=== PATIENT | female | born 1985 | race Caucasian/White ===

== ENCOUNTER 2018-12-16 12:04 | Inpatient (IN) | payer OTHER ==
[2018-12-16 12:49] VITALS: BMI 19.7
--- NOTE | 2018-12-16 13:29 | HP ---
COWS - Scale Resting Pulse: 0= [place] 80 or Below Sweatin=Flushed/Facial Moisture Restless Observation: 1= Difficult to Sit Still Pupil Size: 1= Pupils >than Normal Bone or Joint Aches: 1= Mild Discomfort Runny Nose/ Eye Tearin= Nasal Congestion GI Upset > 30mins: 2= Nausea/Diarrhea Tremor Observation: 2= Slight Tremor Visible Yawning Observation: 1= 1-2x During Session Anxiety or Irritability: 0= None Goose Flesh Skin: 3=Piloerection COWS Score: 14 CIWA Score - Admission Criteria OASAS Guidelines: Admission for Medically Managed Detox: Requires at least one of the followin. CIWA greater than 12 2. Seizures within the past 24 hours 3. Delirium tremens within the past 24 hours 4. Hallucinations within the past 24 hours 5. Acute intervention needed for co occurring medical disorder 6. Acute intervention needed for co occurring psychiatric disorder 7. Severe withdrawal that cannot be handled at a lower level of care (continued vomiting, continued diarrhea, abnormal vital signs) requiring intravenous medication and/or fluids 8. Admission ROS [facility] - [facility] Chief Complaint: I want to stop using heroin Allergies/Adverse Reactions: Allergies Allergy/AdvReac Type Severity Reaction Status Date / Time No Known Allergies Allergy Verified 12/16/18 12:29 History of Present Illness: 32 year old woman who has been using heroin for 10 years presents for detox and possible rehabilitation. Her last treatment was in [place], after which she moved to [facility] and went to [facility]' out patient programme. She reports relapsing after her case was closed for missing therapy. She reports overdosing and withdrawal related seizure about a year ago. She is on gabapentin 600mg three times daily for chronic back pain related to herniated disc. Exam Limitations: No Limitations - Ebola screening Have you traveled outside of the country in the last 21 days: No (N) Have you had contact with anyone from an Ebola affected area: No Have you been sick,other than usual withdrawal symptoms: No Do you have a fever: No - Review of Systems Constitutional: Chills, Diaphoresis, Loss of Appetite, Unintentional Wgt. Loss EENT: reports: No Symptoms Reported Respiratory: reports: No Symptoms reported Cardiac: reports: No Symptoms Reported GI: reports: Nausea, Poor Fluid Intake Musculoskeletal: reports: Back Pain, Muscle Weakness Integumentary: reports: Sweating Neuro: reports: Seizure (remote), Tremors Endocrine: reports: No Symptoms Reported Hematology: reports: No Symptoms Reported Psychiatric: reports: Orientated x3, Anxious, Depressed Other Systems: Reviewed and Negative Patient History - Patient Medical History Hx Anemia: No Hx Asthma: No Hx Chronic Obstructive Pulmonary Disease (COPD): No Hx Cancer: No Hx Cardiac Disorders: No Hx Congestive Heart Failure: No Hx Hypertension: Yes (on meds) Hx Hypercholesterolemia: No Hx Pacemaker: No HX Cerebrovascular Accident: No Hx Seizures: Yes (related to drugs a couple of years ago ) Hx Dementia: No Hx Diabetes: No Hx Gastrointestinal Disorders: No Hx Liver Disease: No Hx Genitourinary Disorders: No Hx Sexually Transmitted Disorders: No Hx Renal Disease (ESRD): No Hx Thyroid Disease: No Hx Human Immunodeficiency Virus (HIV): No Hx Hepatitis C: Yes (not treated) Hx Depression: Yes Hx Suicide Attempt: No Hx Bipolar Disorder: No Hx Schizophrenia: No - Patient Surgical History Past Surgical History: Yes Hx Neurologic Surgery: No Hx Cataract Extraction: No Hx Cardiac Surgery: No Hx Lung Surgery: No Hx Breast Surgery: No Hx Breast Biopsy: No Hx Abdominal Surgery: No Hx Appendectomy: No Hx Cholecystectomy: No Hx Genitourinary Surgery: No Hx Section: No Hx Orthopedic Surgery: No Hx Hysterectomy: No Other Surgical History: tonsillectomy Anesthesia Reaction: No - PPD History Previous Implant?: Yes Documented Results: Negative w/o proof Implanted On Prior R Admission?: No PPD to be Administered?: Yes - Reproductive History Patient is a Female of Child Bearing Age (11 -55 yrs old): Yes LMP comment: irregular bleeding due to use of BC pills Patient : No - Smoking Cessation Smoking history: Current every day smoker Have you smoked in the past 12 months: Yes Aproximately how many cigarettes per day: 10 Hx Chewing Tobacco Use: No Initiated information on smoking cessation: Yes 'Breaking Loose' booklet given: 12/16/18 - Substances abused Heroin Substance route: Injection Frequency: Daily Amount used: 2 bundles Age of first use: 26 Date of last use: 12/15/18 Alprazolam (Xanax) Substance route: Oral Frequency: Daily Amount used: 3 - 1mg pill Age of first use: 22 Date of last use: 12/15/18 Family Disease History - Family Disease History Family Disease History: CA: Grandparent (breast ca, hodgkins lymphoma) Admission Physical Exam [facility] - Vital Signs Vital Signs: Vital Signs - 24 hr 12/16/18 12:26 Temperature 97.7 F Pulse Rate 72 Respiratory 17 Rate Blood Pressure 112/83 - Physical General Appearance: Yes: No Apparent Distress HEENTM: Yes: Hearing grossly Normal, Normocephalic, Normal Voice, ARMANDO Respiratory: Yes: Chest Non-Tender, Lungs Clear, Normal Breath Sounds, No Respiratory Distress, No Accessory Muscle Use Neck: Yes: No masses,lesions,Nodules, Supple Breast: Yes: Breast Exam Deferred Cardiology: Yes: Regular Rhythm, Regular Rate, S1, S2 Abdominal: Yes: Normal Bowel Sounds, Non Tender, Flat, Soft Genitourinary: Yes: Within Normal Limits Back: Yes: Normal Inspection Musculoskeletal: Yes: full range of Motion, Gait Steady, Pelvis Stable, Back pain, Muscle Pain, Muscle weakness Extremities: Yes: Tremors Neurological: Yes: care advocate II-XII NML intact, Fully Oriented, Alert, Normal Mood/ Affect, Normal Response Integumentary: Yes: Clammy, Track Burrows (on both arma) Lymphatic: Yes: Within Normal Limits - Diagnostic (1) Opioid dependence with withdrawal Current Visit: Yes Status: Acute (2) Nicotine dependence Current Visit: Yes Status: Acute Qualifiers: Nicotine product type: cigarettes Substance use status: uncomplicated Qualified Code(s): F17.210 - Nicotine dependence, cigarettes, uncomplicated (3) Hypertension Current Visit: Yes Status: Chronic Qualifiers: Hypertension type: essential hypertension Qualified Code(s): I10 - Essential (primary) hypertension (4) Depression Current Visit: Yes Status: Chronic (5) Herniated disc Current Visit: Yes Status: Chronic Qualifiers: Spinal region: lumbar Qualified Code(s): M51.26 - Other intervertebral disc displacement, lumbar region (6) Back pain Current Visit: Yes Status: Acute Qualifiers: Back pain location: low back pain Back pain laterality: bilateral Cleared for Admission [facility] - Detox or Rehab [facility] Level of Care: Medically Managed Detox Regimen/Protocol: Methadone Breathalyzer - Breathalyzer Breathalyzer: 0 Urine Drug Screen - Test Device Lot number: [id number] Expiration date: 08/31/20 - Control Is test valid?: Yes - Results Drug screen NEGATIVE: No Urine drug screen results: THC-Marijuana, MOP-Opiates Inpatient Rehab Admission - Rehab Decision to Admit Inpatient rehab admission?: No
[2018-12-16] MEDS ORDERED: MAG HYDROX/AL HYDROX/SIMETH 30 ML UNIT-DOSE CUP PO PRN (13:37)
[2018-12-16] MEDS ORDERED: P-EPHED 60MG/TRIPROLIDI 2.5MG TABLET PO PRN (13:37)
[2018-12-16] MEDS ORDERED: ACETAMINOPHEN 325 MG TABLET (FP) PO PRN ×2 (13:37)
[2018-12-16] MEDS ORDERED: IBUPROFEN 400 MG TABLET (FP) PO PRN (13:37)
[2018-12-16] MEDS ORDERED: MENTHOL/PHENOL 1 EACH UD MM PRN (13:37)
[2018-12-16] MEDS ORDERED: MAGNESIUM HYDROX 2400MG/30ML ORAL SUSPENSION 30 ML CUP PO PRN (13:37)
[2018-12-16] MEDS ORDERED: cloNIDine HCL 0.1 MG TABLET PO PRN (13:37)
[2018-12-16] MEDS ORDERED: MELATONIN 5 MG TABLETS PO PRN (13:37)
[2018-12-16] MEDS ORDERED: hydrOXYzine PAMOATE 50 MG CAPSULE (FP) PO PRN (13:37)
[2018-12-16] MEDS ORDERED: METHADONE HCL 10 MG TABLET (FOR DETOX USE ONLY) PO ONE ×2 (13:37→23:00)
[2018-12-16] MEDS ORDERED: ONDANSETRON *ODT* 4 MG TABLET SL PRN (13:37)
[2018-12-16] MEDS ORDERED: METHOCARBAMOL 500 MG TABLET PO PRN (13:37)
[2018-12-16] MEDS ORDERED: MAGNESIUM CITRATE 300 ML BOTTLE PO PRN (13:37)
[2018-12-16] MEDS ORDERED: BISMUTH SUBSALICYLATE 524 MG/30 ML UD PO PRN (13:37)
[2018-12-16] MEDS ORDERED: NICOTINE POLACRILEX 2 MG GUM BUC PRN (13:37)
[2018-12-16] MEDS ORDERED: NALOXONE HCL 0.4 MG/ML VIAL IVPUSH PRN (13:37)
[2018-12-16] MEDS: GABAPENTIN 300 MG CAPSULE (FP) PO SCH ×2 (14:44→22:13)
[2018-12-16] MEDS: clonazePAM 0.5 MG TABLET PO PRN ×2 (14:45→19:45)
[2018-12-16] MEDS: NICOTINE 14 MG/24 HOURS TOPICAL PATCH TD SCH (14:51)
[2018-12-16] MEDS ORDERED: THIAMINE HCL 100 MG TABLET (FP) PO SCH (22:00)
[2018-12-16] MEDS ORDERED: QUEtiapine FUMARATE 50 MG TABLET PO ONE (22:00)
[2018-12-17] MEDS: GABAPENTIN 300 MG CAPSULE (FP) PO SCH ×2 (05:26→13:29)
[2018-12-17] MEDS: clonazePAM 0.5 MG TABLET PO PRN ×2 (05:28→11:29)
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
[2018-12-17] MEDS ORDERED: METHADONE HCL 5 MG TABLET (FOR DETOX USE ONLY) PO ONE (10:00)
[2018-12-17] MEDS ORDERED: PRENATAL VITAMINS W/ FOLIC ACID TABLET (FP) PO SCH (10:00)
[2018-12-17] MEDS ORDERED: ARIPiprazole 5 MG TABLET (FP) PO SCH (10:30)
[2018-12-17] MEDS ORDERED: VENLAFAXINE HCL 75 MG E.R. CAPSULES (FP) PO SCH (10:30)
[2018-12-17] MEDS: NICOTINE 14 MG/24 HOURS TOPICAL PATCH TD SCH (10:35)
[2018-12-17 13:20] VITALS: BP 119/67; PULSE 75; TEMP 97.9
--- NOTE | 2018-12-17 14:42 | DS ---
[facility] Detox Discharge Summary Admission Date: 12/16/18 Discharge Date: 12/17/18 - History Present History: Opioid Dependence, Sedative Dependence Pertinent Past History: ABOVE - Physical Exam Results Vital Signs: Vital Signs Temperature 97.9 F 12/17/18 13:19 Pulse Rate 75 12/17/18 13:19 Respiratory Rate 18 12/17/18 13:19 Blood Pressure 119/67 12/17/18 13:19 O2 Sat by Pulse Oximetry (%) Pertinent Admission Physical Exam Findings: ADMITTED IN ACUTE WITHDRAWAL PERSISTED AND SYMPTOMATIC MANAGEMENT ATTEMPTED PT DC AMA IN SPITE OF EXTENSIVE MOTIBVATIONAL COUNSELING RE DESIRE TO COMPLETE DETOX AND EVENTUAL ABSTINENCE RISKS OF LOSS OF TOLERANCE RELAPSE OVERDOSE AND DISCUSSED - Medication Discharge Medications: Ambulatory Orders Aripiprazole 2 mg PO DAILY 12/16/18 Ethinyl Estradiol/Drospirenone [Jasmiel 3 mg-0.02 mg Tablet] 1 each PO DAILY Gabapentin 600 mg PO TID 12/16/18 Propranolol HCl 10 mg PO DAILY 12/16/18 Quetiapine Fumarate [Seroquel -] 50 mg PO HS 12/16/18 Venlafaxine HCl [Effexor -] 150 mg PO DAILY 12/16/18 - AMA Did Patient Leave Against Medical Advice: Yes
--- NOTE | 2018-12-17 16:52 | EKG ---
Test Reason : Blood Pressure : / mmHG Vent. Rate : 051 BPM Atrial Rate : 051 BPM P-R Int : 146 ms QRS Dur : 086 ms QT Int : 416 ms P-R-T Axes : 045 073 059 degrees QTc Int : 383 ms SINUS BRADYCARDIA OTHERWISE NORMAL ECG NO PREVIOUS ECGS AVAILABLE Confirmed by MD PALOMA, RENATA ([id number]) on 12/17/2018 4:51:47 PM Referred By: Confirmed By:RENATA DOW MD
[2018-12-17] MEDS ORDERED: QUEtiapine FUMARATE 50 MG TABLET PO SCH (22:00)
[2018-12-18] MEDS ORDERED: METHADONE HCL 10 MG TABLET (FOR DETOX USE ONLY) PO ONE (10:00)
[2018-12-19] MEDS ORDERED: METHADONE HCL 5 MG TABLET (FOR DETOX USE ONLY) PO ONE (06:00)
== END 2018-12-17 14:36 | disposition left against medical advice (07) | DRG 770 ==
LOC: YASAS 12:04 → Y3N 13:31
PROVIDERS: ADMIT Surgery; ATTEND Surgery
PROC: HZ2ZZZZ Detoxification Services for Substance Abuse Treatment (ICD-10-PCS; principal; 2018-12-16)
DX: F11.23 Opioid dependence with withdrawal (principal); F13.230 Sedative, hypnotic or anxiolytic dependence with withdrawal, uncomplicated; F17.210 Nicotine dependence, cigarettes, uncomplicated; F33.9 Major depressive disorder, recurrent, unspecified; F19.24 Other psychoactive substance dependence with psychoactive substance-induced mood disorder; F19.282 Other psychoactive substance dependence with psychoactive substance-induced sleep disorder; M51.26 Other intervertebral disc displacement, lumbar region; M54.5 Low back pain; G89.29 Other chronic pain; I10 Essential (primary) hypertension; B18.2 Chronic viral hepatitis C; Z86.69 Personal history of other diseases of the nervous system and sense organs
CPT/HCPCS: 81025; 93005; 93010

== ENCOUNTER 2022-09-08 17:21 | Inpatient (IN) | payer BC ==
[2022-09-08 17:49] VITALS: BMI 30.2
[2022-09-08] MEDS ORDERED: CLINDAMYCIN 900 MG PREMIX IVPB 900 MG/50 ML BAG IVPB ONE ×2 (18:14→18:55)
[2022-09-08] MEDS ORDERED: ACETAMINOPHEN 1000 MG/100 ML BAG IVPB ONE (18:16)
[2022-09-08] MEDS ORDERED: DIPHTH,PERTUSS(ACELL),TET 0.5 ML DISP.SYRIN IM ONE ×2 (18:16→18:48)
[2022-09-08] MEDS ORDERED: LACTATED RINGERS SOLUTION 1000 ML INFUS.BAG IV ONE ×2 (18:16)
[2022-09-08] MEDS ORDERED: ACETAMINOPHEN INJECTION 100 ML IVPB ONE (18:48)
[2022-09-08 19:05] LABS: BASO % 0.5 % (0-2.0); EOS % 1.4 % (0-4.5); HEMATOCRIT 34.2 % (32.4-45.2); LYMPH % 28.5 % (8-40); MCHC 32.2 g/dl (32.0-36.0); MEAN CELL VOLUME 83.9 fl (80-96); MEAN PLT VOLUME 8.3 fl (7.5-11.1); MONO % 8.2 % (3.8-10.2); NEUT % 61.4 % (42.8-82.8); PLATELET COUNT 272 10^3/uL (134-434); RBC 4.08 M/mm3 (3.60-5.2); RDW 13.7 % (11.6-15.6); WHITE BLOOD COUNT 5.1 K/mm3 (4.0-10.0)
[2022-09-08 19:12] LABS: INR 1.23 (0.83-1.09); PROTHROMBIN TIME (PATIENT) 14.2 SEC (9.7-13.0)
[2022-09-08 19:15] LABS: ACTIVATED PTT 32.8 SECONDS (25.2-36.5)
[2022-09-08 19:34] LABS: BLOOD UREA NITROGEN 5.5 mg/dL (7-18); CALCIUM 8.7 mg/dL (8.5-10.1)
[2022-09-08 19:35] LABS: ALBUMIN 3.2 g/dl (3.4-5.0)
[2022-09-08 19:38] LABS: CREATININE 0.5 mg/dL (0.55-1.3)
[2022-09-08 19:40] LABS: BILIRUBIN,TOTAL 0.4 mg/dL (0.2-1); TOT PROT 7.2 g/dl (6.4-8.2)
[2022-09-08] MEDS ORDERED: POTASSIUM CHLORIDE TABS 20 MEQ TABLET.ER (FP) PO ONE (23:46)
[2022-09-09] MEDS ORDERED: cloNIDine HCL 0.1 MG TABLET PO PRN (00:48)
[2022-09-09] MEDS ORDERED: propRANOLol HCL 10 MG TABLET PO PRN (01:14)
[2022-09-09] MEDS ORDERED: hydrOXYzine PAMOATE 25 MG CAPSULE (FP) PO PRN (01:14)
[2022-09-09] MEDS ORDERED: methaDONE HCL 10 MG TABLET PO ONE (01:15)
[2022-09-09] MEDS ORDERED: methaDONE HCL 10 MG TABLET ONE (01:21)
[2022-09-09] MEDS ORDERED: KCL 10 MEQ IVPB 30 MEQ/300 ML INFUS.BAG IVPB ONE (01:21)
[2022-09-09] MEDS ORDERED: POTASSIUM CHLORIDE TABS 20 MEQ TABLET.ER (FP) PO ONE ×2 (01:21→05:00)
[2022-09-09] MEDS: KCL 10 MEQ IVPB 10 MEQ/100 ML INFUS.BAG IVPB SCH ×3 (01:51→04:47)
[2022-09-09] MEDS ORDERED: PIPERACILLIN/TAZOB 3.375 GM 3.375 GM/50 ML BAG IVPB ONE ×2 (01:54→08:59)
[2022-09-09] MEDS: PIPERACILLIN/TAZOB 3.375 GM 3.375 GM in DEXTROSE 5%-WATER - 50 ML IVPB SCH ×3 (02:04→15:48)
[2022-09-09 03:50] LABS: HIV INTERPRETATION NEGATIVE (NEGATIVE)
[2022-09-09] MEDS ORDERED: KETOROLAC TROMETHAMINE 30 MG/1 ML VIAL IVPUSH ONE (04:58)
[2022-09-09] MEDS ORDERED: GABAPENTIN 300 MG CAPSULE ONE ×3 (05:13→22:29)
[2022-09-09] MEDS ORDERED: KETOROLAC TROMETHAMINE 30 MG/1 ML VIAL ONE ×2 (05:14→13:03)
[2022-09-09] MEDS: CLINDAMYCIN 900 MG PREMIX IVPB 900 MG/50 ML BAG IVPB SCH ×2 (05:29→08:59)
[2022-09-09] MEDS: GABAPENTIN 300 MG CAPSULE PO SCH ×3 (05:30→22:29)
[2022-09-09] MEDS ORDERED: GABAPENTIN 300 MG CAPSULE PO SCH (06:00)
[2022-09-09] MEDS: KETOROLAC TROMETHAMINE 15 MG/ML VIAL IVPUSH PRN ×2 (13:04→23:22)
[2022-09-09] MEDS ORDERED: ENOXAPARIN NA (PORCINE) 40 MG/0.4 ML DISP.SYRIN SQ ONE (14:29)
[2022-09-09] MEDS: ENOXAPARIN NA (PORCINE) 40 MG/0.4 ML DISP.SYRIN SQ SCH (14:35)
[2022-09-09] MEDS ORDERED: VANCOMYCIN/WATER FOR INJ (PEG) 1,000 MG/200 ML BAG IVPB ONE (16:23)
[2022-09-09] MEDS ORDERED: VANCOMYCIN 500 MG VIAL (RESTRICTED TO ID ONLY) ONE (16:23)
[2022-09-09] MEDS: VANCOMYCIN PREMIX 1.5 GM 1,500 MG/300 ML BAG IVPB SCH (16:27)
[2022-09-09] MEDS ORDERED: CLINDAMYCIN HCL 150 MG CAPSULE (FP) PO SCH (18:00)
[2022-09-09] MEDS ORDERED: QUEtiapine FUMARATE 100 MG TABLET (FP) PO SCH (22:00)
[2022-09-09] MEDS ORDERED: QUEtiapine FUMARATE 100 MG TABLET (FP) ONE (22:29)
[2022-09-09] MEDS: LORazepam 1 MG TABLET PO PRN (23:24)
[2022-09-10] MEDS: GABAPENTIN 300 MG CAPSULE PO SCH ×3 (06:21→21:26)
[2022-09-10] MEDS: LORazepam 1 MG TABLET PO PRN (06:22)
[2022-09-10] MEDS: ENOXAPARIN NA (PORCINE) 40 MG/0.4 ML DISP.SYRIN SQ SCH (09:49)
[2022-09-10] MEDS ORDERED: POTASSIUM CHLORIDE TABS 20 MEQ TABLET.ER (FP) PO SCH (10:00)
[2022-09-10] MEDS ORDERED: ACETAMINOPHEN 325 MG TABLET (FP) PO ONE (10:30)
[2022-09-10] MEDS ORDERED: BACITRACIN ZINC 15 GM TUBE TOPICAL OINTMENT TP SCH (11:00)
[2022-09-10 11:29] VITALS: RESP 18
[2022-09-10] MEDS: KETOROLAC TROMETHAMINE 15 MG/ML VIAL IVPUSH PRN (14:10)
[2022-09-10] MEDS: VANCOMYCIN PREMIX 1.5 GM 1,500 MG/300 ML BAG IVPB SCH (14:30)
[2022-09-10 14:46] LABS: URINE APPEARANCE CLEAR; URINE BILIRUBIN NEGATIVE (NEGATIVE); URINE COLOR YELLOW; URINE GLUCOSE (UA) NEGATIVE (NEGATIVE); URINE KETONE 1+ (NEGATIVE); URINE LEUK ESTERASE NEGATIVE (NEGATIVE); URINE NITRITE NEGATIVE (NEGATIVE); URINE PROTEIN TRACE (NEGATIVE)
[2022-09-10] MEDS: KETOROLAC TROMETHAMINE 30 MG/1 ML VIAL IVPUSH PRN (18:51)
[2022-09-10] MEDS: QUEtiapine FUMARATE 100 MG TABLET (FP) PO SCH (21:26)
[2022-09-11] MEDS: GABAPENTIN 300 MG CAPSULE PO SCH ×3 (06:20→21:02)
[2022-09-11] MEDS: BACITRACIN ZINC 15 GM TUBE TOPICAL OINTMENT TP SCH (09:09)
[2022-09-11] MEDS: POTASSIUM CHLORIDE TABS 20 MEQ TABLET.ER (FP) PO SCH (09:10)
[2022-09-11] MEDS: ENOXAPARIN NA (PORCINE) 40 MG/0.4 ML DISP.SYRIN SQ SCH (09:10)
[2022-09-11] MEDS ORDERED: methaDONE HCL 10 MG TABLET PO ONE ×3 (10:00)
[2022-09-11] MEDS: KETOROLAC TROMETHAMINE 30 MG/1 ML VIAL IVPUSH PRN ×3 (10:15→22:53)
[2022-09-11] MEDS: VANCOMYCIN PREMIX 1.5 GM 1,500 MG/300 ML BAG IVPB SCH (15:58)
[2022-09-11] MEDS: LORazepam 1 MG TABLET PO PRN ×2 (16:27→22:52)
[2022-09-11 17:48] LABS: BASO % 0.5 % (0-2.0); EOS % 2.2 % (0-4.5); HEMATOCRIT 35.2 % (32.4-45.2); HEMOGLOBIN 11.5 GM/dL (10.7-15.3); LYMPH % 33.9 % (8-40); MCH 27.2 pg (25.7-33.7); MCHC 32.6 g/dl (32.0-36.0); MEAN CELL VOLUME 83.5 fl (80-96); MEAN PLT VOLUME 8.1 fl (7.5-11.1); MONO % 7.9 % (3.8-10.2); NEUT % 55.5 % (42.8-82.8); PLATELET COUNT 261 10^3/uL (134-434); RBC 4.22 M/mm3 (3.60-5.2); RDW 13.8 % (11.6-15.6); WHITE BLOOD COUNT 5.2 K/mm3 (4.0-10.0)
[2022-09-11 17:58] LABS: BLOOD UREA NITROGEN 9.3 mg/dL (7-18); MAGNESIUM 1.9 mg/dL (1.8-2.4)
[2022-09-11 17:59] LABS: ALBUMIN 2.8 g/dl (3.4-5.0)
[2022-09-11 18:02] LABS: BILIRUBIN,TOTAL 0.3 mg/dL (0.2-1); CREATININE 0.5 mg/dL (0.55-1.3)
[2022-09-11 18:03] LABS: TOT PROT 6.2 g/dl (6.4-8.2)
[2022-09-11] MEDS ORDERED: ACETAMINOPHEN 500 MG TABLET (FP) PO ONE (20:47)
[2022-09-11] MEDS: QUEtiapine FUMARATE 100 MG TABLET (FP) PO SCH (21:03)
[2022-09-12] MEDS: GABAPENTIN 300 MG CAPSULE PO SCH ×2 (05:57→15:01)
[2022-09-12] MEDS: KETOROLAC TROMETHAMINE 30 MG/1 ML VIAL IVPUSH PRN ×2 (05:57→12:48)
[2022-09-12] MEDS: LORazepam 1 MG TABLET PO PRN (08:49)
[2022-09-12] MEDS: ENOXAPARIN NA (PORCINE) 40 MG/0.4 ML DISP.SYRIN SQ SCH (09:45)
[2022-09-12] MEDS: BACITRACIN ZINC 15 GM TUBE TOPICAL OINTMENT TP SCH (09:46)
[2022-09-12] MEDS: POTASSIUM CHLORIDE TABS 20 MEQ TABLET.ER (FP) PO SCH (11:01)
[2022-09-12 14:31] VITALS: BP 123/75; PULSE 88; TEMP 98.5
[2022-09-12] MEDS: VANCOMYCIN PREMIX 1.5 GM 1,500 MG/300 ML BAG IVPB SCH (15:01)
[2022-09-12] MEDS ORDERED: ACETAMINOPHEN 1000 MG/100 ML BAG IVPB ONE (15:22)
[2022-09-13] MEDS ORDERED: methaDONE HCL 10 MG TABLET PO ONE ×3 (10:00)
== END 2022-09-12 17:05 | disposition left against medical advice (07) | DRG 383 ==
LOC: JER 17:21 → JERBED 19:07 → J4W 09-09 22:45 → J5S 09-10 18:40
PROVIDERS: ADMIT Internal Medicine; ATTEND Internal Medicine
DX: L03.114 Cellulitis of left upper limb (principal); L03.113 Cellulitis of right upper limb; F11.23 Opioid dependence with withdrawal; F90.9 Attention-deficit hyperactivity disorder, unspecified type; I49.9 Cardiac arrhythmia, unspecified; B18.2 Chronic viral hepatitis C; I33.0 Acute and subacute infective endocarditis; F32.9 Major depressive disorder, single episode, unspecified; E87.6 Hypokalemia; R94.31 Abnormal electrocardiogram [ECG] [EKG]; I10 Essential (primary) hypertension; R45.1 Restlessness and agitation; Z59.00 Homelessness unspecified
CPT/HCPCS: 0241U-QW; 36415; 71045-TC-FY; 73130-TC-LT-FY; 73130-TC-RT-FY; 80053; 81003; 83036; 83605; 83735; 84132; 84703; 85025; 85610; 85730; 87040; 87086; 87389; 90715; 93005; 93010; 99285-25